=== PATIENT | female | born 1980 | race Caucasian/White ===

== ENCOUNTER 2018-01-11 07:55 | Observation (INO) | payer OTHER ==
[~2018-01-11 07:55] MED LIST: ALPR.25 PO; MECL25 PO; VENL75TA91 PO; ZITH250T PO
[2018-01-11 07:58] VITALS: BP 173/94; PULSE 105; RESP 20; TEMP 98.6; O2SAT 98
[2018-01-11 09:01] LABS: BASOPHIL % 0.5 % (0.0-2.0); EOSINOPHIL # 0.1 TH/MM3 (0-0.4); EOSINOPHIL % 1.8 % (0.0-4.0); HEMATOCRIT 42.6 % (35.0-46.0); HEMOGLOBIN 14.7 GM/DL (11.6-15.3); LYMPH % 31.6 % (9.0-44.0); LYMPHOCYTE # 2.5 TH/MM3 (1.0-4.8); MEAN CORPUSCULAR HEMOGLOBIN 28.9 PG (27.0-34.0); MEAN CORPUSCULAR HGB CONC 34.4 % (32.0-36.0); MEAN PLATELET VOLUME 8.6 FL (7.0-11.0); MONO % 4.4 % (0.0-8.0); MONOCYTE # 0.4 TH/MM3 (0-0.9); NEUT % 61.7 % (16.0-70.0); PLATELET COUNT 259 TH/MM3 (150-450); RED BLOOD COUNT 5.07 MIL/MM3 (4.00-5.30); RED CELL DISTRIBUTION WIDTH 13.1 % (11.6-17.2)
[2018-01-11 09:02] LABS: BACTERIA, URINE MANY /hpf; BILIRUBIN, URINE NEG (NEG); BLOOD, URINE SMALL (NEG); GLUCOSE,URINE NEG (NEG); KETONE, URINE NEG (NEG); MUCUS URINE FEW /lpf (OCC); NITRITE,URINE NEG (NEG); SQUAMOUS EPITHELIAL CELL URINE 4 /hpf (0-5); URINE COLOR YELLOW (YELLW/STRAW); URINE LEUKOCYTE ESTERASE LARGE (NEG)
[2018-01-11 09:38] LABS: BICARBONATE 23.6 MEQ/L (21.0-32.0); BLOOD UREA NITROGEN 13 MG/DL (7-18); CALCIUM 8.9 MG/DL (8.5-10.1); CHLORIDE 107 MEQ/L (98-107); CREATININE 0.86 MG/DL (0.50-1.00); GLOMERULAR FILTRATION RATE 74 ML/MIN (>89); GLUCOSE,RANDOM 94 MG/DL (74-106); SODIUM (NA) 139 MEQ/L (136-145)
[2018-01-11 09:42] LABS: TROPONIN I LESS THAN 0.02 NG/ML (0.02-0.05)
--- NOTE | 2018-01-11 12:26 | PD ---
HPI Chief Complaint: Chest Pain Time Seen by Provider: 12:06 Travel History International Travel<30 days: No Contact w/Intl Traveler<30days: No Traveled to known affect area: No History of Present Illness HPI Patient 37-year-old female presents to emergency department with a weeks worth history of exertional chest tightness which is nonradiating but is accompanied with some shortness of breath and dizziness. No diaphoresis no nausea no vomiting. She was found to be hypertensive and her primary care physician's office today so was sent here for further evaluation of her chest pain and hypertension. She states she has never had a stress test before but does not have a history of high blood pressure high cholesterol, she is morbidly obese, family history of heart disease starting in 40s, states her father had a massive heart attack at the age of 40. States currently her discomfort is very mild. PFSH Past Medical History Asthma: Yes Anxiety: Yes Depression: Yes Cancer: No Diabetes: No Hepatitis: No Hiatal Hernia: No Respiratory: Yes (ASTHMA DUST ) Thyroid Disease: No ?: Not Past Surgical History Abdominal Surgery: No Cardiac Surgery: No Section: Yes Ear Surgery: No Endocrine Surgery: No Eye Surgery: No Genitourinary Surgery: No Gynecologic Surgery: Yes () Oral Surgery: No Thoracic Surgery: No Other Surgery: Yes Social History Alcohol Use: Yes (OCCATIONAL) Tobacco Use: No Allergies-Medications (Allergen,Severity, Reaction): Coded Allergies: Sulfa (Sulfonamide Antibiotics) (Unverified Allergy, Severe, UNKNOWN, 01/11) cephalexin (Unverified Allergy, Severe, SWELLING, 01/11/18) Reported Meds & Prescriptions Reported Meds & Active Scripts Active Review of Systems Except as stated in HPI: all other systems reviewed are Neg Physical Exam Narrative GENERAL: WD/WN in NAD SKIN: Warm and dry. HEAD: Atraumatic. Normocephalic. EYES: Pupils equal and round. No scleral icterus. No injection or drainage. ENT: No nasal bleeding or discharge. Mucous membranes pink and moist. NECK: Trachea midline. No JVD. CARDIOVASCULAR: Regular rate and rhythm. RESPIRATORY: No accessory muscle use. Clear to auscultation. Breath sounds equal bilaterally. GASTROINTESTINAL: Abdomen soft, non-tender, nondistended. Hepatic and splenic margins not palpable. MUSCULOSKELETAL: Extremities without clubbing, cyanosis, or edema. No obvious deformities. NEUROLOGICAL: Awake and alert. No obvious cranial nerve deficits. Motor grossly within normal limits. Five out of 5 muscle strength in the arms and legs. Normal speech. PSYCHIATRIC: Appropriate mood and affect; insight and judgment normal. Data Data Last Documented VS Vital Signs Date Time Temp Pulse Resp B/P (MAP) Pulse Ox O2 Delivery O2 Flow Rate FiO2 01/11/18 07:58 98.6 105 20 173/94 (120) 98 Orders Orders Electrocardiogram (01/11/18 07:56) Complete Blood Count With Diff (01/11/18 07:56) Basic Metabolic Panel (Bmp) (01/11/18 07:56) Ckmb (Isoenzyme) Profile (01/11/18 07:56) Troponin I (01/11/18 07:56) Urinalysis - C+S If Indicated (01/11/18 07:58) Ed Urine Pregnancytest Poc (01/11/18 07:58) Urine Culture (01/11/18 08:06) CKMB (01/11/18 08:12) CKMB% (01/11/18 08:12) D-Dimer (01/11/18 12:26) Act Partial Throm Time (Ptt) (01/11/18 12:26) Prothrombin Time / Inr (Pt) (01/11/18 12:26) Aspirin Chew (Aspirin Chew) (01/11/18 12:30) Nitroglycerin 2% Oint (Nitroglycerin 2% (01/11/18 12:30) Admit Order (Ed Use Only) (01/11/18 ) Labs Laboratory Tests Test 01/11/18 08:06 01/11/18 08:12 01/11/18 12:36 Urine Color YELLOW Urine Turbidity HAZY Urine pH 7.0 Urine Specific [place] 1.017 Urine Protein TRACE mg/dL Urine Glucose (UA) NEG mg/dL Urine Ketones NEG mg/dL Urine Occult Blood SMALL Urine Nitrite NEG Urine Bilirubin NEG Urine Urobilinogen LESS THAN 2.0 MG/DL Urine Leukocyte Esterase LARGE Urine RBC 28 /hpf Urine WBC /hpf Urine Squamous Epithelial Cells 4 /hpf Urine Bacteria MANY /hpf Urine Mucus FEW /lpf Microscopic Urinalysis Comment CULTURE INDICATED White Blood Count 8.0 TH/MM3 Red Blood Count 5.07 MIL/MM3 Hemoglobin 14.7 GM/DL Hematocrit 42.6 % Mean Corpuscular Volume 84.0 FL Mean Corpuscular Hemoglobin 28.9 PG Mean Corpuscular Hemoglobin Concent 34.4 % Red Cell Distribution Width 13.1 % Platelet Count 259 TH/MM3 Mean Platelet Volume 8.6 FL Neutrophils (%) (Auto) 61.7 % Lymphocytes (%) (Auto) 31.6 % Monocytes (%) (Auto) 4.4 % Eosinophils (%) (Auto) 1.8 % Basophils (%) (Auto) 0.5 % Neutrophils # (Auto) 5.0 TH/MM3 Lymphocytes # (Auto) 2.5 TH/MM3 Monocytes # (Auto) 0.4 TH/MM3 Eosinophils # (Auto) 0.1 TH/MM3 Basophils # (Auto) 0.0 TH/MM3 CBC Comment DIFF FINAL Differential Comment Blood Urea Nitrogen 13 MG/DL Creatinine 0.86 MG/DL Random Glucose 94 MG/DL Calcium Level 8.9 MG/DL Sodium Level 139 MEQ/L Potassium Level 4.2 MEQ/L Chloride Level 107 MEQ/L Carbon Dioxide Level 23.6 MEQ/L Anion Gap 8 MEQ/L Estimat Glomerular Filtration Rate 74 ML/MIN Total Creatine Kinase 119 U/L Creatine Kinase MB 1.5 NG/ML Troponin I LESS THAN 0.02 NG/ML Prothrombin Time 10.0 SEC Prothromb Time International Ratio 1.0 RATIO Activated Partial Thromboplast Time 28.5 SEC D-Dimer Quantitative (PE/DVT) LESS THAN 0.19 MG/L FEU [facility] Medical Decision Making Medical Screen Exam Complete: Yes Emergency Medical Condition: Yes Differential Diagnosis ACS, [place], GERD, anxiety, PE seems unlikely Narrative Course Patient room to the emergency department, mild chest tightness on arrival, nitroglycerin given transdermally, aspirin, initial EKG and troponin negative. D-dimer negative. Discussed with her family history would be reasonable for her to stay with chest pain center for consideration of further workup. She verbalized understanding and agreement. Diagnosis Primary Impression: Chest pain Admitting Information Admitting Physician Requests: Observation Condition: Stable Berhane Melgoza MD Jan 11, 2018 12:25
[2018-01-11] MEDS ORDERED: ASPIRIN 81 MG CHEW TAB CHEW ONE (12:30)
[2018-01-11] MEDS ORDERED: NITROGLYCERIN 2% OINT 1 GM PACKET TOPICAL ONE (12:30)
[2018-01-11 13:16] LABS: D-DIMER LESS THAN 0.19 MG/L FEU (0.00-0.50)
[2018-01-11 14:47] VITALS: PULSE 88; RESP 18; O2SAT 99
--- NOTE | 2018-01-11 14:50 | EKG ---
Date Performed: 01/11/2018 Time Performed: 08:08:22 PTAGE: 37 years EKG: SINUS TACHYCARDIA ABNORMAL RHYTHM ECG PREVIOUS TRACING : 06/08/2013 13.51 No significant change from previous tracing noted. DOCTOR: Tashi Venegas Interpretating Date/Time 01/11/2018 14:48:36
[2018-01-11] MEDS ORDERED: ACETAMINOPHEN 325 MG TAB PO ONE (15:15)
[2018-01-11] MEDS ORDERED: ONDANSETRON HCL 4 MG/2 ML VIAL IV PUSH PRN (15:30)
[2018-01-11] MEDS ORDERED: ACETAMINOPHEN 500 MG CPLT PO PRN (15:30)
[2018-01-11] MEDS ORDERED: ACETAMINOPHEN/HYDROcodone 325 MG/7.5 MG TAB PO PRN (15:30)
--- NOTE | 2018-01-11 15:38 | HHI.HP ---
[facility] Primary Care Physician Henrik Farmer MD Chief Complaint Chest pain History of Present Illness This is a 37-year-old female that presents to ED to be evaluated for chest discomfort. States she has had intermittent discomfort in the center of her chest primarily but occasionally left upper chest for 1 week. Nothing particular brings it on. In fact she states is only happen at rest. At times when it occurs she decides to try to walk to see if it will worsen or improve it and it stays the same. When it occurs will last for hours. She states one particular day recurred 4 times. At times she is short of breath. She was nauseous with her symptoms yesterday. No emesis. Denies diaphoresis. Denies history of Parkinson's. Cannot recall ever having a stress test. Patient also claims of urinary frequency but denies dysuria hematuria incontinence or vaginal discharge. Denies back pain or fever. Denies . She initially thought it was anxiety however is took Xanax and that did not help her symptoms. Review of Systems General: Patient denies fevers, chills, and recent travel. HEENT: Patient denies headache, sore throat, difficulty swallowing. Cardiovascular: Has the chest discomfort as mentioned above. Denies sensation of heart beating rapidly or irregularly. No syncope. Denies diaphoresis. Respiratory: Occasionally short of breath. Denies inspirational chest discomfort. Denies coughing wheezing or hemoptysis. GI: She was nauseous one time and that was yesterday without emesis. Patient denies vomiting, diarrhea, abdominal pain, bloody stools. Musculoskeletal: Patient denies joint pain or edema. Denies calf pain or edema. Neurovascular: Patient denies numbness, tingling, weakness in extremities. Denies headache. Endocrine: Denies polyuria and polydipsia. Hematologic: Denies easy bruising. Skin: Denies rash or itching. Past Family Social History Allergies: Coded Allergies: Sulfa (Sulfonamide Antibiotics) (Unverified Allergy, Severe, UNKNOWN, 01/11) cephalexin (Unverified Allergy, Severe, SWELLING, 01/11/18) Past Medical History Anxiety. Denies hypertension, hyperlipidemia, diabetes, or CAD. Essentially non-smoker. States she smoked a little bit when she was younger. Past Surgical History and repair of right knee ACL tear. Reported Medications Reported Meds & Active Scripts Active Active Ordered Medications Current Medications Medications (Trade) Dose Ordered Sig/Serina Route Start Time Stop Time Status Last Admin (Tylenol) 500 mg Q4H PRN PO 01/11/18 15:30 UNV ([place] 7.5-325 Mg) 1 tab Q4H PRN PO 01/11/18 15:30 UNV (Zofran Inj) 4 mg Q6H PRN IV PUSH 01/11/18 15:30 UNV (Protonix) 40 mg DAILY PO 01/11/18 15:30 UNV (Aspirin) 325 mg DAILY PO 01/12/18 09:00 UNV Family History Her father had an [place] in his 40s. Social History Non-smoker. Has on average 3 beers or glass of wine per weekend. Denies illicit drugs. She is Physical Exam Vital Signs Vital Signs Date Time Temp Pulse Resp B/P (MAP) Pulse Ox O2 Delivery O2 Flow Rate FiO2 01/11/18 14:47 88 18 99 01/11/18 07:58 98.6 105 20 173/94 (120) 98 Physical Exam GENERAL: This is a well-nourished, well-developed patient, in no apparent distress. Patient speaks in clear complete sentences. Patient is pleasant. HEENT: Head is atraumatic and normocephalic. Neck is supple without lymphadenopathy and trachea is midline. No JVD or carotid bruits. CARDIOVASCULAR: Regular rate and rhythm without murmurs, gallops, or rubs. RESPIRATORY: Clear to auscultation. Breath sounds equal bilaterally. No wheezes , rales, or rhonchi. Chest wall is tender but not the same type of discomfort that she has been having.. No use of accessory muscles. GASTROINTESTINAL: Abdomen is nontender, nondistended. Abdomen soft. No obvious pulsatile mass or bruit. No CVA tenderness. Strong femoral pulses bilaterally. Normal bowel sounds in all quadrants. MUSCULOSKELETAL: Patient is moving upper and lower extremities freely. No calf tenderness or edema, no Homans sign. Strong pulses in upper and lower extremities. NEUROLOGICAL: Patient is alert and oriented. Cranial nerves 2-12 are grossly intact. No focal deficits and speech is clear. SKIN: No rash and turgor is normal. Laboratory Laboratory Tests Test 01/11/18 08:06 01/11/18 08:12 01/11/18 12:36 Urine Color YELLOW Urine Turbidity HAZY Urine pH 7.0 Urine Specific [place] 1.017 Urine Protein TRACE Urine Glucose (UA) NEG Urine Ketones NEG Urine Occult Blood SMALL Urine Nitrite NEG Urine Bilirubin NEG Urine Urobilinogen LESS THAN 2.0 Urine Leukocyte Esterase LARGE Urine RBC 28 Urine WBC Urine Squamous Epithelial Cells 4 Urine Bacteria MANY Urine Mucus FEW Microscopic Urinalysis Comment CULTURE INDICATED White Blood Count 8.0 Red Blood Count 5.07 Hemoglobin 14.7 Hematocrit 42.6 Mean Corpuscular Volume 84.0 Mean Corpuscular Hemoglobin 28.9 Mean Corpuscular Hemoglobin Concent 34.4 Red Cell Distribution Width 13.1 Platelet Count 259 Mean Platelet Volume 8.6 Neutrophils (%) (Auto) 61.7 Lymphocytes (%) (Auto) 31.6 Monocytes (%) (Auto) 4.4 Eosinophils (%) (Auto) 1.8 Basophils (%) (Auto) 0.5 Neutrophils # (Auto) 5.0 Lymphocytes # (Auto) 2.5 Monocytes # (Auto) 0.4 Eosinophils # (Auto) 0.1 Basophils # (Auto) 0.0 CBC Comment DIFF FINAL Differential Comment Blood Urea Nitrogen 13 Creatinine 0.86 Random Glucose 94 Calcium Level 8.9 Sodium Level 139 Potassium Level 4.2 Chloride Level 107 Carbon Dioxide Level 23.6 Anion Gap 8 Estimat Glomerular Filtration Rate 74 Total Creatine Kinase 119 Creatine Kinase MB 1.5 Troponin I LESS THAN 0.02 Prothrombin Time 10.0 Prothromb Time International Ratio 1.0 Activated Partial Thromboplast Time 28.5 D-Dimer Quantitative (PE/DVT) LESS THAN 0.19 Date/Time Source Procedure Growth Status 01/11/18 08:06 Urine Clean Catch Urine Culture Pending Received Result Diagram: 01/11/18 0812 01/11/18 0812 Course Initial EKG sinus tachycardia rate [address] segment depressions or elevations. Caprini VTE Risk Assessment Caprini VTE Risk Assessment: No/Low Risk (score <= 1) Caprini Risk Assessment Model Point Value = 1 Point Value = 2 Point Value = 3 Point Value = 5 Age 41-60 Minor surgery BMI > 25 kg/m2 Swollen legs Varicose veins or History of unexplained or recurrent spontaneous Oral contraceptives or hormone replacement Sepsis (< 1 month) Serious lung disease, including pneumonia (< 1 month) Abnormal pulmonary function Acute myocardial infarction Congestive heart failure (< 1 month) History of inflammatory bowel disease Medical patient at bed rest Age 61-74 Arthroscopic surgery Major open surgery (> 45 min) Laparoscopic surgery (> 45 min) Malignancy Confined to bed (> 72 hours) Immobilizing plaster cast Central venous access Age >= 75 History of VTE Family history of VTE Factor V Leiden Prothrombin [id number] Lupus anticoagulant Anticardiolipin antibodies Elevated serum homocysteine Heparin-induced thrombocytopenia Other congenital or acquired thrombophilia Stroke (< 1 month) Elective arthroplasty Hip, pelvis, or leg fracture Acute spinal cord injury (< 1 month) Prophylaxis Regimen Total Risk Factor Score Risk Level Prophylaxis Regimen 0-1 Low Early ambulation 2 Moderate Order ONE of the following: *Sequential Compression Device (SCD) *Heparin 5000 units SQ BID 3-4 Higher Order ONE of the following medications: *Heparin 5000 units SQ TID *Enoxaparin/Lovenox 40 mg SQ daily (WT < 150 kg, CrCl > 30 mL/min) *Enoxaparin/Lovenox 30 mg SQ daily (WT < 150 kg, CrCl > 10-29 mL/min) *Enoxaparin/Lovenox 30 mg SQ BID (WT < 150 kg, CrCl > 30 mL/min) AND/OR *Sequential Compression Device (SCD) 5 or more Highest Order ONE of the following medications: *Heparin 5000 units SQ TID (Preferred with Epidurals) *Enoxaparin/Lovenox 40 mg SQ daily (WT < 150 kg, CrCl > 30 mL/min) *Enoxaparin/Lovenox 30 mg SQ daily (WT < 150 kg, CrCl > 10-29 mL/min) *Enoxaparin/Lovenox 30 mg SQ BID (WT < 150 kg, CrCl > 30 mL/min) AND *Sequential Compression Device (SCD) Assessment and Plan Assessment and Plan * Chest pain: Her symptoms seem atypical. However she has family history heart disease with her father having an [place] in his 40s needing a CABG. Patient will continue to have serial cardiac enzymes and EKGs for ruling out purposes. The chest x-ray is pending. She will be seen by Dr. Spangler of cardiology in the Chest pain center. Likely to have a stress test in the morning if she rules out. Patient to be discharged home if her stress test is nonischemic with instructions to follow-up with PCP and to return to ED for interval issues. Patient is stable at this time. She is agreeable to this plan. Pablo Prado Jan 11, 2018 15:38
--- NOTE | 2018-01-11 15:43 | RADRPT ---
EXAM DATE/TIME: 01/11/2018 15:29 [place] COMPARISON: No previous studies available for comparison. INDICATIONS : Chest pain and headache for 1 week. MEDICAL HISTORY : Asthma. SURGICAL HISTORY : None. ENCOUNTER: Initial ACUITY: 1 week PAIN SCORE: 3/10 LOCATION: Bilateral chest FINDINGS: A single view of the chest demonstrates the lungs to be symmetrically aerated without evidence of mas s, infiltrate or effusion. The cardiomediastinal contours are unremarkable. Osseous structures are intact. CONCLUSION: 1. No acute cardiopulmonary findings. Florian Espino MD on January 11, 2018 at 15:40 Board Certified Radiologist. This report was verified electronically.
[2018-01-11] MEDS: PANTOPRAZOLE SOD 40 MG DELAYED RELEASE TAB PO SCH (16:00)
[2018-01-11 16:07] LABS: TROPONIN I LESS THAN 0.02 NG/ML (0.02-0.05)
[2018-01-11] MEDS ORDERED: SODIUM CHLOR 0.9% 1000 ML INJ 1,000 ML IV SCH (17:04)
[2018-01-11 17:07] VITALS: BP 142/91; PULSE 97; RESP 12; TEMP 98; O2SAT 95
[2018-01-11] MEDS ORDERED: cloNIDine HCL 0.1 MG TAB PO PRN (17:15)
[2018-01-11] MEDS ORDERED: diphenhydrAMINE HCL 25 MG CAP PO ONE (17:15)
[2018-01-11] MEDS: NITROFURANTOIN MONOHYD MACROCR 100 MG CAP PO SCH (17:53)
--- NOTE | 2018-01-11 18:50 | EKG ---
Date Performed: 01/11/2018 Time Performed: 15:38:57 PTAGE: 37 years EKG: Sinus rhythm NORMAL ECG Since PREVIOUS TRACING , no significant change noted PREVIOUS TRACIN01/11/2018 08.08 DOCTOR: Maggi Spangler Interpretating Date/Time 01/11/2018 18:50:37
[2018-01-11 19:14] LABS: TROPONIN I LESS THAN 0.02 NG/ML (0.02-0.05)
[2018-01-12] VITALS: BP 124/76; PULSE 79; RESP 18; TEMP 97.9; O2SAT 96
[2018-01-12 00:19] VITALS: PULSE 71
[2018-01-12 03:58] VITALS: BP 128/76; PULSE 85; RESP 18; TEMP 97.9; O2SAT 97
[2018-01-12 04:09] VITALS: PULSE 73
[2018-01-12] MEDS: PANTOPRAZOLE SOD 40 MG DELAYED RELEASE TAB PO SCH (07:50)
[2018-01-12] MEDS: NITROFURANTOIN MONOHYD MACROCR 100 MG CAP PO SCH (07:51)
[2018-01-12 07:53] VITALS: BP 144/80; PULSE 84; RESP 20; TEMP 97.8; O2SAT 96
[2018-01-12] MEDS ORDERED: ASPIRIN 325 MG TAB PO SCH (09:00)
[2018-01-12] MEDS ORDERED: MACR100C2 PO (09:43)
--- NOTE | 2018-01-12 09:43 | HHI.DCPOC ---
Discharge Care Plan Diagnosis: (1) Chest pain (2) UTI (urinary tract infection) Goals to Promote Your Health * To prevent worsening of your condition and complications * To maintain your health at the optimal level Directions to Meet Your Goals Take your medications as prescribed Follow your dietary instruction Follow activity as directed Keep your appointments as scheduled Take your immunizations and boosters as scheduled If your symptoms worsen call your PCP, if no PCP go to Urgent Care Center or Emergency Room Smoking is Dangerous to Your Health. Avoid second hand smoke Call the 24-hour hour crisis hotline for domestic abuse at Pablo Prado Jan 12, 2018 09:43
--- NOTE | 2018-01-12 11:59 | EKG ---
Date Performed: 01/11/2018 Time Performed: 18:20:51 PTAGE: 37 years EKG: Sinus rhythm NORMAL ECG PREVIOUS TRACING : 01/11/2018 15.38 Since previous tracing, no significant change noted DOCTOR: Oziel Velasquez Interpretating Date/Time 01/12/2018 11:58:25
--- NOTE | 2018-01-12 16:53 | TR ---
Date Performed: 01/12/2018 Time Performed: 09:00:15 DOCTOR: Oziel Velasquez DRUG LIST: CLINICAL HISTORY: REASON FOR TEST: REASON FOR ENDING: OBSERVATION: CONCLUSION: SATINDER PROTOCOL. NO CP OR SOB. TEST STOPPED AFTER EXCEDING GOAL HR SECONDARY TO LEG FATIGUE.Maximum SJ=333 % Max HR Achieved=95.0% Maximum DR=072/82 Total Exercise Time=6:00 COMMENTS: Patient exercised using the [place] protocol. No electrocardiographic changes were seen to suggest ischemia. Hemodynamic response to exercise was normal. No significant arrhythmia was prese nt.
== END 2018-01-12 11:23 | disposition home or self-care (01) ==
LOC: NEPD 07:55 → NEDA 14:09 → NEPHCDU 16:16
PROVIDERS: ADMIT Internal Medicine Interventional Cardiology; ATTEND Internal Medicine Interventional Cardiology
DX: R07.89 Other chest pain (principal); N39.0 Urinary tract infection, site not specified; R03.0 Elevated blood-pressure reading, without diagnosis of hypertension; R06.02 Shortness of breath; R42 Dizziness and giddiness; R00.0 Tachycardia, unspecified; R94.31 Abnormal electrocardiogram [ECG] [EKG]; R11.0 Nausea; J45.909 Unspecified asthma, uncomplicated; F41.9 Anxiety disorder, unspecified; F32.9 Major depressive disorder, single episode, unspecified; Z87.891 Personal history of nicotine dependence; Z82.49 Family history of ischemic heart disease and other diseases of the circulatory system
CPT/HCPCS: 71045; 80048; 81001; 82550; 82552; 84484; 84703; 85025; 85379; 85610; 85730; 87077; 87086; 87186; 93005; 93017; 96360; 99285; G0378; J7030